=== PATIENT | male | born 1955 | race Caucasian/White ===

== ENCOUNTER 2020-02-26 09:20 | Outpatient (CLI) | payer OTHER, SELFPAY | END 2020-02-26 09:21 | disposition home or self-care (01) | LOC: CHSLAB 09:24 | PROVIDERS: PCP Family Medicine; Visit Provider Specialist | DX: L57.0 Actinic keratosis (principal) | CPT/HCPCS: 88305; 88342 ==

== ENCOUNTER → 2021-05-05 12:06 | Outpatient (CLI) | payer OTHER, SELFPAY ==
--- NOTE | ~2021-05-05 | XR_ITS ---
EXAMINATION: XR forearm RT 2V EXAM DATE: 05/05/2021 13:10 INDICATION: M79.601 - Pain in right arm. pt c/o pain in right forearm posterior side, red swollen and sore to the touch x couple weeks after bumping into an object, TECHNIQUE: Right forearm frontal and lateral projections obtained and reviewed. There is no prior st udy for comparison. FINDINGS: There is ulnar minus variance. Mild right elbow primary osteoarthritis. There are no acute fractures or dislocations identified. There is no subcutaneous gas. There may be some nonspecific soft tissue swelling posteriorly. There are no radiopaque foreign bodies. IMPRESSION: No acute osseous findings. Reviewed, dictated and finalized at location A. IMPRESSION: No acute osseous findings.
== END ==
PROVIDERS: PCP Family Medicine; Visit Provider Physician Assistant
DX: M19.021 Primary osteoarthritis, right elbow (principal)
CPT/HCPCS: 73090

== ENCOUNTER 2022-06-11 08:06 | Outpatient (CLI) | payer MEDICARE, OTHER, SELFPAY ==
[2022-06-11 21:44] LABS: Hemoglobin A1C 5.5 % (<5.7)
[2022-06-11 22:31] LABS: Alanine Aminotransferase 20 U/L (6-50); Albumin Level 4.7 g/dL (3.5-5.1); Alkaline Phosphatase 80 U/L (38-126); Anion Gap 11 mmol/L (8-16); Aspartate Amino Transferase 24 U/L (17-59); Blood Urea Nitrogen 21 mg/dL (9-20); Calcium 9.5 mg/dL (8.4-10.2); Carbon Dioxide 24 mmol/L (22-30); Chloride 102 mmol/L (98-107); Cholesterol 169 mg/dL (0-200); Estimated Glomerular Filt Rate > 60; Glucose 100 mg/dL (65-110); HDL Direct 60 mg/dL; Potassium 3.8 mmol/L (3.4-5.0); Sodium 137 mmol/L (137-145); Triglycerides 76 mg/dL (<150)
[2022-06-11 22:44] LABS: LDL Cholesterol Direct 85 mg/dL
[2022-06-11 23:01] LABS: Prostate Specific Antigen 5.1 ng/mL (< OR = 4.0)
== END 2022-06-11 08:07 | disposition home or self-care (01) ==
LOC: ANHGOSHLAB 08:10
PROVIDERS: PCP Family Medicine; Visit Provider Family Medicine
DX: Z12.5 Encounter for screening for malignant neoplasm of prostate (principal); E78.5 Hyperlipidemia, unspecified; Z51.81 Encounter for therapeutic drug level monitoring; Z79.899 Other long term (current) drug therapy
CPT/HCPCS: 36415; 80053; 80061; 83036; 84153; 84443; G0103

== ENCOUNTER 2022-06-15 09:34 | Outpatient (CLI) | payer MEDICARE, OTHER, SELFPAY ==
[2022-06-17 20:11] LABS: PSA, Free 1.08 ng/mL; Percent Free Prostate Spec Ag 22 % (>25)
== END 2022-06-15 09:35 | disposition home or self-care (01) ==
LOC: ANHGOSHLAB 09:38
PROVIDERS: PCP Family Medicine; Visit Provider Physician Assistant
DX: R97.20 Elevated prostate specific antigen [PSA] (principal)
CPT/HCPCS: 36415; 84153; 84154

== ENCOUNTER 2022-10-05 13:44 | Outpatient (CLI) | payer MEDICARE, OTHER, SELFPAY ==
--- NOTE | ~2022-10-05 | XR_ITS ---
EXAMINATION: XR chest 2V DATE: 10/05/2022 15:26 INDICATION: Malignant neoplasm of the prostate TECHNIQUE: PA and lateral views of the chest are obtained. COMPARISON: None available FINDINGS: The lungs are free of acute opacities. No pleural effusion or pneumothorax. The cardiomedia stinal silhouette is normal. There is moderate thoracic spondylosis. IMPRESSION: 1. No acute cardiopulmonary abnormality. Reviewed, dictated and finalized at location L. IMEDIA SERVICES MANAGER
--- NOTE | 2022-10-05 14:35 | ECG_ITS ---
Measurements Intervals [place] Rate: 65 P: 48 TN: 159 QRS: 38 QRSD: 94 T: 38 QT: 413 QTc: 432 Interpretive Statements SINUS RHYTHM NO PREVIOUS ECG AVAILABLE FOR COMPARISON Electronically Signed On 10-05-2022 15:03:14 DRY CELL ASSEMBLY SUPERVISOR by Hilda Gaines M.D.
[2022-10-05 15:14] LABS: Basophils Absolute Auto 0.1 K/mm3 (0.0-0.1); Basophils Percent Auto 0.7 % (0.2-1.2); Eosinophils Absolute Auto 0.1 K/mm3 (0-0.3); Eosinophils Percent Auto 0.9 % (0-4.4); Hematocrit 45.1 % (42.0-52.0); Hemoglobin 15.3 g/dL (14.0-18.0); Immature Granulocyte Absolute 0.03 K/mm3 (0.00-0.031); Immature Granulocyte Percent A 0.3 % (0-0.5); Lymphocytes Absolute Auto 2.05 K/mm3 (0.9-3.2); Lymphocytes Percent Auto 22.2 % (18.3-44.2); Mean Corpuscular HGB Conc 33.9 g/dl (32-36); Mean Corpuscular Hemoglobin 31.5 pg (26-34); Mean Corpuscular Volume 92.8 fl (80-100); Monocytes Absolute Auto 0.9 K/mm3 (0.1-0.6); Monocytes Percent Auto 10.1 % (2.6-8.5); Neutrophils Absolute Auto 6.1 K/mm3 (1.3-6.7); Neutrophils Percent Auto 65.8 % (45.5-73.1); Platelet Count Result 276 k/mm3 (150-375); Red Blood Count 4.86 M/mm3 (4.6-6.20); Red Cell Distribution Width 11.6 % (11.5-14.5); White Blood Count 9.2 K/mm3 (4.5-10.0)
[2022-10-05 15:16] LABS: Appearance Urine Clear (Clear); Bilirubin Urine Negative (Negative); Blood Urine Trace-lysed (Negative); Color Urine Yellow (Yellow); Glucose Urine UA Negative (Negative); Ketones Urine Negative (Negative); Leukocyte Esterase Ur Negative LEU/UL (Negative); Nitrate Urine Negative (Negative); Protein Urine Negative (Negative); Specific Grav Ur 1.015 (1.001-1.035); Urobilinogen Urine 0.2 mg/dL (<2.0)
[2022-10-05 15:20] LABS: RBC Urine 0-2 /hpf (0-2); WBC Urine 0-3 /hpf
[2022-10-05 15:23] LABS: Alanine Aminotransferase 23 U/L (6-50); Albumin Level 4.6 g/dL (3.5-5.1); Alkaline Phosphatase 79 U/L (38-126); Anion Gap 5 mmol/L (8-16); Aspartate Amino Transferase 28 U/L (17-59); Blood Urea Nitrogen 19 mg/dL (9-20); Calcium 9.7 mg/dL (8.4-10.2); Carbon Dioxide 32 mmol/L (22-30); Chloride 97 mmol/L (98-107); Estimated Glomerular Filt Rate > 60; Glucose 100 mg/dL (65-110); Sodium 134 mmol/L (137-145)
[2022-10-05 15:26] LABS: Add Urine Microscopic? YES; INR 1.1; Prothrombin Time 13.4 Seconds (11.1-14.7)
[2022-10-05 15:27] LABS: Partial Thromboplastin Time 29.2 SECONDS (22.3-36.8)
== END 2022-10-05 13:45 | disposition home or self-care (01) ==
PROVIDERS: PCP Family Medicine; Visit Provider Urology
DX: Z01.818 Encounter for other preprocedural examination (principal); C61 Malignant neoplasm of prostate
CPT/HCPCS: 36415; 71046; 80053; 81001; 85025; 85610; 85730; 86850; 86900; 86901; 93005

== ENCOUNTER 2022-10-14 00:05 | Day surgery (SDC) | payer MEDICARE, OTHER, SELFPAY ==
--- NOTE | 2022-09-28 13:56 | PM.IMHP ---
H&P: HPI History of Present Illness Date/Time: 09/28/22 13:56 Chief Complaint: Prostate cancer Narrative: pleasant 67-year-old dominguez recently referred with a PSA of 5.0. Prostate biopsy showed 2 of 12 cores with Zak 3+4=7, consistent with a favorable intermediate risk prostate cancer. After careful discussion of therapeutic options including active surveillance, radiation therapy in its various forms, androgen ablation and robotic prostatectomy he has elected for the latter. He is aware the risk including, but not limited to, adverse cardiopulmonary events, persistent cancer with need for additional therapy, urinary incontinence and erectile dysfunction. Review of Systems Cardiovascular: Cardiovascular: Denies chest pain, Denies lightheadedness, Denies palpitations and Denies dyspnea Respiratory: Respiratory: Denies dyspnea Gastrointestinal: Gastrointestinal: Denies diarrhea, Denies nausea and Denies vomiting Genitourinary: Genitourinary: Denies hematuria and Denies dysuria Endocrine: Endocrine: Denies palpitations PMFSH Past Medical History Medical History Arthritis Family history of prostate cancer in father Left shoulder pain Family History Family History Sibling Carcinoma of colon Family history of malignant neoplasm of gastrointestinal tract Family history of malignant neoplasm of breast Mother Hypertension Patient's mother is Acute myocardial infarction Depression Heart disease Father Hypertension Family history of elevated blood lipids Malignant neoplasm of prostate Social History Social History (Updated 09/03/22 @ 16:22 by Hannah Estrada MA) Social History: Caffeine- tea Smoking status: Never smoker Alcohol intake: never Alcohol use details: none Substance use: never Substance use type: does not use Lack of Transportation: No Lack of Food: Never True Current Housing: I Have Housing Concerned About Future Housing: No Difficulty Paying for Meds: No Currently Unemployed: No Education: High School Diploma/GED Difficulty w/ Childcare or Family Care: No Living arrangements: with family Occupation/Education: occupation Additional occupation/education comments: [employer] Gender identity (if verbalized by the patient): Male Spiritual care concerns: No Meds Home Medications and Allergies Home Medications Medication Instructions Recorded Confirmed Type brinzolamide 1 %-brimonidine 0.2 % 1 drp EACH EYE TID 11/25/21 06/18/22 History eye drops,suspension lovastatin 10 mg tablet 10 mg PO QPM #90 tabs 01/13/22 06/18/22 Rx lisinopril 10 See Rx Instructions .Route 02/03/22 06/18/22 Rx mg-hydrochlorothiazide 12.5 mg .COMPLEX #90 tabs tablet fluoxetine 20 mg capsule (Prozac) 20 mg PO DAILY #90 caps 09/03/22 Rx tamsulosin 0.4 mg capsule cap PO 09/03/22 History lorazepam 1 mg tablet 1 mg PO QHS PRN anxiety #30 tabs 09/07/22 Rx sodium,potassium,mag sulfates 17.5 See Rx Instructions PO .COMPLEX 09/07/22 Rx gram-3.13 gram-1.6 gram oral soln #354 mL (Suprep Bowel Prep Kit) Allergies Allergy/AdvReac Type Severity Reaction Status Date / Time No Known Allergies Allergy Verified 09/13/22 08:15 Exam Const: General: no acute distress Resp: Effort & Inspection: normal respiratory effort GI: Inspection: non-distended GI Palp: No abdominal tenderness and No Guarding due to palpation present (GI) Auscultation: normal bowel sounds Assessment and Plan Assessment and plan (1) Prostate cancer: Code(s): C61 - Malignant neoplasm of prostate Status: Acute Assessment and Plan: robotic assisted laparoscopic prostatectomy with bilateral pelvic lymphadenectomy
[2022-10-05 13:53] VITALS: BMI 26.4
--- NOTE | 2022-10-05 14:11 | PC.NURSE ---
Report to the Outpatient Waiting Room, entrance under the green pavilion located off [facility], at time __0600 on date __10/14/22 . Planned Procedure Time: ___729 . Time changes happen often and if your time is changed the preop area will call you the afternoon before. - You and your visitor will be asked to self-screen and do not enter if you have any COVID symptoms. - Only one visitor is requested with a max of two and NO children visitors are allowed at this time. - The patient visitor may be requested to leave or wait in car when not with patient due to distancing restrictions. - A mask is optional within the hospital at this time. Patients may have clear liquids (water, carbonated beverages, clear teas, apple juice) until 3 hours prior to surgery with a maximum of 20 ounces. - No food from midnight until time of surgery - Infants may have breast milk until 4 hours before surgery, formula 6 hours prior to surgery. - Children will be allowed to drink immediately following surgery. If applicable, please bring a bottle or sippy cup to assist with drinking. Juice, water, soda, and popsicles are readily available. For infants on formula, please bring formula the day of surgery. Pacifiers are allowed. Take the following medications with a SIP of water the morning of surgery: __EYE DROPS, FLUOXETINE DO NOT STOP ANY OF YOUR OTHER PRESCRIPTION MEDICATIONS PRIOR TO SURGERY ?EXCEPT THE FOLLOWING Medications to discontinue per physician NONE Date to take last dose BOWEL PREP PER DR SCOTT Please no make-up, nail portuguese, hairspray, perfume, deodorant, or body powder the day of surgery. No jewelry (including any body piercings) or valuables the day of surgery, leave them at home. Please take a shower or bath the night before, or the morning of, surgery with an antibacterial soap. Wear comfortable, loose fitting clothing. Children are encouraged to wear pajamas. - Jewelry must be removed prior to entering the operating room. Rings and piercings that are not removed may be cut off. - The hospital will not accept responsibility for valuables. - Please leave all valuables, including medications, at home the day of surgery. If you are going home after surgery, a licensed test car driver must drive you home. - NO public transportation without another adult if you receive anesthesia. - We recommend that an adult stay with you for 24 hours following discharge. - We also recommend that you do not drive, make important decision, drink alcoholic beverages, or take any drugs that were not prescribed by your health care provider for at least 24 hours after your discharge time. Follow any additional instructions given to you from your surgeon. If you or anyone in your household have experienced Covid symptoms in the past week, please notify your surgeon or the nurse liaison at the phone number below for possible testing. VERBAL AND WRITTEN instructions given to __PATIENT and asked if any additional questions and then verbalized understanding. Patient advised to call surgeon office or pre surgery nurse liaison [phone] if any additional questions.
[2022-10-05 14:35] VITALS: BP 150/71; PULSE 69; RESP 18; TEMP 36.7; O2SAT 98
--- NOTE | 2022-10-13 13:21 | WPDANESEPPF ---
Anes - Initial Pre Proc Eval Procedure: Operation Date: 10/14/22 07:30 Proposed Procedures p Robotic Assisted Laparoscopic Prostatectomy with Bilateral Pelvic Lymph Node Dissection - Charly Brennan MD Date/Time: 10/13/22 13:21 Surgeon: Charly Brennan MD Pre Op Diagnosis: prostate CA Patient Data Age: 67 Gender: M Height: 1.73 m Weight: 79 kg Last Vital Signs Temp 98.0 F 10/05/22 14:35 Pulse 69 10/05/22 14:35 Resp 18 10/05/22 14:35 BP 150/71 H 10/05/22 14:35 Pulse Ox 98 10/05/22 14:35 O2 Del Method Room Air 10/05/22 14:35 Allergies Allergy/AdvReac Type Severity Reaction Status Date / Time No Known Allergies Allergy Verified 10/14/22 06:07 Home Medications Medication Instructions Recorded Confirmed Type brinzolamide 1 %-brimonidine 0.2 % 1 drp EACH EYE TID 11/25/21 10/14/22 History eye drops,suspension lovastatin 10 mg tablet 10 mg PO QPM #90 tabs 01/13/22 10/14/22 Rx lisinopril 10 See Rx Instructions .Route 02/03/22 10/14/22 Rx mg-hydrochlorothiazide 12.5 mg .COMPLEX #90 tabs tablet lorazepam 1 mg tablet 1 mg PO QHS PRN anxiety #30 tabs 09/07/22 10/14/22 Rx sodium,potassium,mag sulfates 17.5 See Rx Instructions PO .COMPLEX 09/07/22 10/14/22 Rx gram-3.13 gram-1.6 gram oral soln #354 mL (Suprep Bowel Prep Kit) fluoxetine 20 mg capsule (Prozac) 20 mg PO DAILY #90 caps 10/04/22 10/14/22 Rx loperamide 2 mg capsule 2 mg PO Q6H PRN Diarrhea 10/05/22 10/14/22 History Patient hx anesthesia problems: none Family hx anesthesia problems: none Results Review: All pre-operative results and documents have been reviewed as part of the pre-operative evaluation. [facility] Past Medical History Medical History (Updated 10/13/22 @ 13:21 by Noé Guevara MD) Arthritis Essential (primary) hypertension Family history of prostate cancer in father Left shoulder pain Mixed hyperlipidemia Prostate cancer Family History Family History Sibling Carcinoma of colon Family history of malignant neoplasm of gastrointestinal tract Family history of malignant neoplasm of breast Mother Hypertension Patient's mother is Acute myocardial infarction Depression Heart disease Father Hypertension Family history of elevated blood lipids Malignant neoplasm of prostate Social History Social History (Updated 09/03/22 @ 16:22 by Hannah Estrada MA) Social History: Caffeine- tea Smoking status: Never smoker Alcohol intake: never Alcohol use details: none Substance use: never Substance use type: does not use Lack of Transportation: No Lack of Food: Never True Current Housing: I Have Housing Concerned About Future Housing: No Difficulty Paying for Meds: No Currently Unemployed: No Education: High School Diploma/GED Difficulty w/ Childcare or Family Care: No Living arrangements: with family Occupation/Education: occupation Additional occupation/education comments: [employer] Gender identity (if verbalized by the patient): Male Spiritual care concerns: No Anes - Eval Final PreProcedure Day of Procedure 10/13/22 13:21 Patient weight: normal Heart: regular rate and rhythm Lungs: clear to auscultation Airway: Mallampati scale class II Neurological: alert and oriented Last oral intake: >/= 8 hours ASA classification: III Emergent: no Anesthetic plan: proceed Anesthesia type and monitoring: general ETT and standard monitoring Results Review: All pre-operative results and documents have been reviewed as part of the pre-operative evaluation. Informed Consent: The patient's anesthetic plan and its attendant risks and benefits were discussed with the patient/family/POA. Questions were solicited and answers provided to the satisfaction of the patient/family/POA.
[2022-10-14] VITALS (13 sets, daily range): BP systolic 100–167; BP diastolic 56–75; PULSE 64–96; RESP 12–20; TEMP 35.8–37.1; O2SAT 93–100
--- NOTE | ~2022-10-14 | XR_ITS ---
EXAMINATION: XR abdomen/kub 1V INDICATION: History of kidney stones TECHNIQUE: Supine view of the abdomen is obtained. COMPARISON: None FINDINGS: There is a 9 mm stone of the left kidney lower pole. No additional urolithiasis is identifi ed. The bowel gas pattern is normal. IMPRESSION: 1. Left nephrolithiasis. Reviewed, dictated and finalized at location A. AND BEVERAGE OUTLETS MANAGER IMPRESSION: 1. Left nephrolithiasis.
[2022-10-14] MEDS: LACTATED RINGERS 1,000 ML 30 ML IV CONT ×2 (06:25→10:28)
--- NOTE | 2022-10-14 06:43 | WPDHPUPDATE1 ---
History and Physical Update Update Date/Time: 10/14/22 06:43 History and Physical has been reviewed, including an updated exam of the patient. There are NO changes in the patient's condition. Risks, benefits, and alternatives have been discussed and questions answered. Patient agrees to proceed with procedure.
[2022-10-14] MEDS: ceFAZolin 2 GM/D5W 50 ML 2 GM/50 ML BAG IVPB (07:22)
--- NOTE | 2022-10-14 10:13 | W.PM.PROC2 ---
Procedure Note - Detailed Date of Procedure 10/14/22 Pre-op Diagnosis Prostate CA Post-op Diagnosis Same Procedure Performed Robotic assisted laparoscopic prostatectomy with bilateral pelvic lymphadenectomy Surgeon Charly Brennan MD Anesthesia General Description of Procedure The patient was brought to the operative suite, where he was prepped and draped in routine sterile fashion while in a dorsal lithotomy, deep Trendelenburg position. A supraumbilical 10 mm trocar was placed after insufflation of the abdomen with a Veress needle. Three robotic ports were then placed under direct vision. Two of these were placed in the right lower quadrant - 10 cm and 20 cm lateral to, and in line with, the umbilicus. A third robotic trocar was placed 10 cm to the left of the umbilicus, and 20 cm to the left of the umbilicus, a 12 mm standard laparoscopic trocar was placed to be used as an chef's assistant port. Lastly, a 5 mm trocar was placed in the left upper quadrant midway between the umbilicus and the left robotic trocar. Attention was then turned to the prostatectomy. I opted for a posterior approach in this patient. An incision was made in the parietal peritoneum along the posterior bladder/posterior prostate about 2 cm above the reflection of the peritoneum over the anterior rectum. The seminal vesicles and vas deferens were immediately identified. Dissection is undertaken in a fashion so as to avoid electrocautery as much as possible, particularly near the tips of the seminal vesicles. Dissection was also carried out in the midline so as to avoid any encounters with the ureters. The vas deferens and the seminal vesicles were dissected in their entirety to the base of the prostate. The plane anterior to Denoviller's fascia, anterior to the rectum and posterior to the prostate was then developed. I then dropped the bladder by incising the anterior parietal peritoneum just lateral to the median umbilical ligaments bilaterally. There was a small unusual soft tissue implant on the posterior bladder wall which I excised and sent as a separate specimen. The bladder was dropped from the anterior abdominal and pelvic wall. The endopelvic fascia was identified and incised bilaterally, allowing for dissection of the posterior-lateral aspect of the prostate. The puboprostatic ligaments were transected near their origin from the posterior pubic ramus. This posterior lateral dissection of the prostate is also undertaken in a fashion so as to avoid electrocautery as much as possible. The dorsal vein of the penis is then secured with an 0 -Vicryl ligature. Attention is then turned to the bladder neck. The anterior bladder neck is incised at the vesico-prostatic junction. The previously placed urethral catheter was drawn through the urethrotomy. A very small bladder neck was maintained throughout the remainder of this dissection. The posterior bladder neck was incised in a fashion so as to avoid any injury to the ureteral orifices. Again, the small aperture of the bladder neck was maintained. The previously dissected vas deferens and the seminal vesicles were brought through the posterior bladder neck incision. The lateral prostatic pedicles were then carefully dissected from the lateral aspect of the prostate bilaterally. The prostatic pedicles were secured with Weck clips and transected. The neurovascular bundles were carefully dissected from the posterior-lateral aspect of the prostate. The dorsal vein of the penis was incised with electrocautery. Using cold scissors, the urethra was incised. After withdrawing the previously placed urethral catheter, the posterior urethra was sharply incised, as was the rectalurethralis muscle. Attention was then turned to an extended bilateral pelvic lymphadenectomy. The limits of this dissection were similar bilaterally. Specifically, the limits were the bifurcation of the common iliac vein proximally, the inguinal ligament di
[2022-10-14] MEDS: fentaNYL CITRATE INJ (*CRX) 100 MCG/2 ML VIAL 25 MCG IV PUSH ×4 (10:56→11:11)
[2022-10-14] MEDS: LACTATED RINGERS 1,000 ML 125 ML IV CONT ×2 (12:12→20:57)
[2022-10-14] MEDS: ONDANSETRON INJ 4 MG/2 ML VIAL IV PUSH (16:54)
[2022-10-14] MEDS: PROMETHAZINE HCL 25 MG/ML AMPUL IM (20:17)
[2022-10-14] MEDS: BRIMONIDINE TARTRATE 0.2% OP SOLN 5 ML BTL 1 DROP EACH EYE (20:22)
[2022-10-14] MEDS: BRINZOLAMIDE 1% OPHTH SUSP 10 ML 1 DROP EACH EYE (20:22)
[2022-10-15] MEDS: LACTATED RINGERS 1,000 ML 125 ML IV CONT (05:19)
[2022-10-15 05:24] VITALS: BP 124/65; PULSE 61; RESP 14; TEMP 36.8; O2SAT 100
--- NOTE | 2022-10-15 06:53 | WPDUROPN2 ---
Progress Note: A&P Assessment and Plan (1) Prostate cancer: Code(s): C61 - Malignant neoplasm of prostate Status: Acute Assessment and Plan: Doing well POD #1 Increase diet and ambulation this morning. Anticipate discharge this afternoon. Subjective Subjective Date/Time Seen: 10/15/22 06:53 Nausea last night -> much better this morning. Review of Systems Cardiovascular: Cardiovascular: Denies chest pain, Denies lightheadedness, Denies palpitations and Denies dyspnea Respiratory: Respiratory: Denies dyspnea Gastrointestinal: Gastrointestinal: Denies diarrhea, Denies nausea and Denies vomiting Genitourinary: Genitourinary: Denies hematuria and Denies dysuria Endocrine: Endocrine: Denies palpitations Exam Const: General: no acute distress Resp: Effort & Inspection: normal respiratory effort GI: Inspection: non-distended and other (incisions clean and dry) GI Palp: No abdominal tenderness and No Guarding due to palpation present (GI) Auscultation: normal bowel sounds : Male General Exam: Yes normal external exam Urinary Catheter: Urinary Catheter: patent and draining Objective Data Vital Signs Vital Signs: Vital Signs - 24 hr 10/14/22 10:28 10/14/22 10:45 10/14/22 11:00 Temperature 97.7 F Pulse Rate 72 74 84 Respiratory Rate 18 16 18 Blood Pressure 100/56 L 117/61 112/64 Pulse Oximetry 99 100 99 Oxygen Delivery Simple Face Mask Simple Face Mask Room Air Oxygen Flow Rate 6 6 10/14/22 11:15 10/14/22 11:30 10/14/22 12:05 Temperature 96.9 F L Pulse Rate 73 79 81 Respiratory Rate 12 14 18 Blood Pressure 117/74 115/71 109/66 Pulse Oximetry 96 95 93 Oxygen Delivery Room Air Room Air Oxygen Flow Rate 10/14/22 12:35 10/14/22 12:35 10/14/22 18:25 Temperature 96.7 F L 96.5 F L Pulse Rate 79 74 Respiratory Rate 19 18 Blood Pressure 107/64 111/64 Pulse Oximetry 96 99 99 Oxygen Delivery Room Air Oxygen Flow Rate 10/14/22 17:24 10/14/22 21:24 10/14/22 23:45 Temperature 97.3 F L 98.4 F 97.8 F Pulse Rate 77 66 64 Respiratory Rate 19 14 12 Blood Pressure 124/65 124/71 142/75 H Pulse Oximetry 99 99 100 Oxygen Delivery Oxygen Flow Rate 10/15/22 05:24 Temperature 98.3 F Pulse Rate 61 Respiratory Rate 14 Blood Pressure 124/65 Pulse Oximetry 100 Oxygen Delivery Oxygen Flow Rate Intake/Output Intake/Output: Intake & Output 10/12/22 10/13/22 10/14/22 10/15/22 23:59 23:59 23:59 23:59 Intake Total 1590 1100 Output Total 210 1350 Balance 1380 -250 Meds/Results Medications: Active Medications Generic Name Dose Route Start Last Admin Trade Name Freq PRN Reason Stop Dose Admin Brimonidine Tartrate 1 drop 10/14/22 21:00 10/14/22 20:22 Brimonidine Tartrate 0.2% Op Soln 5 Ml Btl EACH EYE 1 drop Q12HR NORA Administration Brinzolamide 1 drop 10/14/22 21:00 10/14/22 20:22 Brinzolamide 1% Ophth Susp 10 Ml EACH EYE 1 drop Q12HR NORA Administration Fluoxetine HCl 20 mg 10/15/22 09:00 Fluoxetine Hcl 20 Mg Capsule PO DAILY NORA Hydrochlorothiazide 12.5 mg 10/14/22 13:00 10/14/22 15:57 Hydrochlorothiazide 12.5 Mg Capsule PO Not Given DAILY NORA Hyoscyamine 0.125 mg 10/14/22 11:39 Hyoscyamine Sulfate 0.125 Mg Tablet SUBLINGUAL Q4H PRN Bladder Spasm Lactated Ringer's 1,000 mls @ 125 mls/hr 10/14/22 11:39 10/15/22 05:19 Lr - Lactated Ringers Iv IV CONT 125 mls/hr .Q8H NORA Administration Acetaminophen 1,000 mg in 100 mls @ 400 mls/hr 10/14/22 11:39 10/15/22 05:19 Ofirmev 1,000 Mg Ivpb IVPB 10/15/22 11:38 400 mls/hr Q6H NORA Administration Ketorolac Tromethamine 15 mg 10/14/22 11:39 Ketorolac 15 Mg/Ml Vial (*[facility]) IV PUSH 10/15/22 11:38 Q6H PRN Pain Rated 4-6 Levofloxacin 500 mg 10/15/22 09:00 Levofloxacin 500 Mg Tablet PO DAILY NORA Lisinopril 10 mg 10/14/22 13:00 02/16/23 15:57 Lisinopril 10 Mg Tablet PO No
[2022-10-15 08:16] LABS: Hematocrit 36.4 % (42.0-52.0); Hemoglobin 12.7 g/dL (14.0-18.0)
[2022-10-15 08:24] LABS: Anion Gap 3 mmol/L (8-16); Blood Urea Nitrogen 12 mg/dL (9-20); Calcium 8.7 mg/dL (8.4-10.2); Carbon Dioxide 30 mmol/L (22-30); Chloride 97 mmol/L (98-107); Estimated CRCL calculation 69 ml/min; Estimated Glomerular Filt Rate > 60; Glucose 108 mg/dL (65-110); Potassium 3.8 mmol/L (3.4-5.0); Sodium 130 mmol/L (137-145)
[2022-10-15] MEDS: BRINZOLAMIDE 1% OPHTH SUSP 10 ML 1 DROP EACH EYE (08:36)
[2022-10-15] MEDS: BRIMONIDINE TARTRATE 0.2% OP SOLN 5 ML BTL 1 DROP EACH EYE (08:36)
[2022-10-15] MEDS: FLUoxetine HCL 20 MG CAPSULE PO (08:37)
[2022-10-15] MEDS: lisinopriL 10 MG TABLET PO (08:37)
[2022-10-15] MEDS: levoFLOXacin 500 MG TABLET PO (08:37)
[2022-10-15] MEDS: hydroCHLOROthiazide 12.5 MG CAPSULE PO (08:37)
[2022-10-15 08:55] VITALS: BP 132/61; PULSE 66; RESP 13; TEMP 36.4; O2SAT 100
[2022-10-15 14:00] VITALS: BP 127/61; PULSE 69; RESP 20; TEMP 36.1; O2SAT 100
--- NOTE | 2022-10-15 14:37 | WPDANESPN ---
Anes - Prog Note Post-Op Date/Time: 10/15/22 14:37 Vital Signs: Last Vital Signs Temp 36.4 C L 10/15/22 08:55 Pulse 66 10/15/22 08:55 Resp 13 10/15/22 08:55 BP 132/61 10/15/22 08:55 Pulse Ox 100 10/15/22 08:55 O2 Del Method Room Air 10/15/22 08:30 O2 Flow Rate 6 10/14/22 10:45 Pain Score (VAS): 3 I/O: Intake & Output 10/14/22 10/15/22 10/15/22 23:59 07:59 15:59 Intake Total 1340 1100 360 Output Total 1350 Balance 1340 -250 360 Laboratory Tests 10/15/22 07:44 10/15/22 07:44 10/15/22 10/15/22 07:44 07:44 Hgb 12.7 L Hct 36.4 L Sodium 130 L Potassium 3.8 Chloride 97 L Carbon Dioxide 30 Anion Gap 3 L BUN 12 D Creatinine 0.90 Estim Creat Clear Calc 69 Estimated GFR > 60 Glucose 108 Calcium 8.7 Patient Feedback: Patient satisfied with anesthetic care.
--- NOTE | 2022-10-15 16:18 | PM.DS ---
DS: Admitting Diagnosis Discharge Date 10/15/2022 Admitting Diagnosis Prostate cancer DS: Summary Hospital Course Hospital Course: This patient was admitted on the morning of his planned robotic prostatectomy. This procedure was uneventful, as was his postoperative course. By the evening of the procedure he was sitting at the bedside in tolerating a liquid diet. The following morning he was ambulating freely and tolerating regular food. His catheter drainage remained essentially clear throughout. His postoperative hemoglobin and serum creatinine were unremarkable. At the time of discharge he has been instructed in appropriate care for his Jaimes catheter with both a leg bag and bedside bag. He will be discharged with plans to follow-up in 1 week with a cystogram. Time Spent with Patient Time attestation: Total time spent providing and/or coordinating discharge services: DS: Data Data Completed and Pending Pending studies at discharge: Pending at discharge 10/14/22 08:29 Surgical [PTH] Routine Surgical [PTH] Routine Surgical [PTH] Routine Surgical [PTH] Routine Labs on day of discharge: Labs from last 24 hours 10/15/22 10/15/22 07:44 07:44 Hgb 12.7 L Hct 36.4 L Sodium 130 L Potassium 3.8 Chloride 97 L Carbon Dioxide 30 Anion Gap 3 L BUN 12 D Creatinine 0.90 Estim Creat Clear Calc 69 Estimated GFR > 60 Glucose 108 Calcium 8.7 Discharge Plan Discharge Patient Disposition: Home, Self-Care Discharge Instructions: 1) Jaimes catheter -> leg bag / bedside bag at night. 2) No lifting/straining >15lbs. x3 weeks. 3) No driving x1-week. 4) Resume normal, pre-operative diet. 5) My office will contact regarding follow-up in 1-week with cystogram. Patient Instructions: Jaimes Catheter Placement and Care (DC), Urinary Leg Bag (GEN), How to Change a Catheter Drainage Bag (DC) Stand Alone Forms: General Discharge Instructions Discharge Orders: Discharge Order (Routine); Ordered 10/15/22 Ordered By: Charly Brennan Discharge Medications: New docusate sodium [Colace] 100 mg capsule 100 mg PO DAILY Qty: 30 0RF hydrocodone-acetaminophen 5-325 mg tablet 1 - 2 tablet PO Q6H PRN (Reason: pain) Qty: 30 0RF hyoscyamine sulfate 0.125 mg tablet 0.125 mg PO Q6H PRN (Reason: bladder spasms) Qty: 20 2RF cephalexin 500 mg capsule 500 mg PO Q8H Qty: 12 0RF ondansetron HCl 8 mg tablet 8 mg PO Q8H PRN (Reason: nausea and vomiting) Qty: 12 2RF Continued brinzolamide-brimonidine 1-0.2 % drops,suspension 1 drp EACH EYE BID Label Comments: USES BID Rx Instructions: morning and evening fluoxetine [Prozac] 20 mg capsule 20 mg PO DAILY Qty: 90 1RF loperamide 2 mg Capsule 2 mg PO Q6H PRN (Reason: Diarrhea) lovastatin 10 mg tablet 10 mg PO QPM Qty: 90 3RF Rx Instructions: evening lisinopril-hydrochlorothiazide 10-12.5 mg tablet See Rx Instructions .ROUTE .COMPLEX Qty: 90 3RF Dose Instruction: TAKE 1 TABLET BY MOUTH DAILY Rx Instructions: TAKE 1 TABLET BY MOUTH DAILY lorazepam 1 mg tablet 1 mg PO QHS PRN (Reason: anxiety) Qty: 30 1RF Label Comments: HAS NOT NEEDED TO TAKE
== END 2022-10-15 17:48 | disposition home or self-care (01) ==
LOC: ANHSURGERY 05:51 → ANH3MEDSUR 11:45
PROVIDERS: PCP Family Medicine; Visit Provider Urology
PROC: 0VT04ZZ Resection of Prostate, Percutaneous Endoscopic Approach (ICD-10-PCS; CPT 55867; principal; 2022-10-14 07:30)
DX: C61 Malignant neoplasm of prostate (principal); N32.89 Other specified disorders of bladder; I10 Essential (primary) hypertension; E78.2 Mixed hyperlipidemia
CPT/HCPCS: 55866; 38571; S2900; 36415; 74018; 80048; 85014; 85018; 88305; 88309; A9270; J0131; J0690; J1100; J1170; J2405; J2550; J2704; J2710; J3010; J7030; J7120

== ENCOUNTER 2022-10-22 11:43 | Outpatient (CLI) | payer MEDICARE, OTHER, SELFPAY ==
--- NOTE | ~2022-10-22 | XR_ITS ---
EXAMINATION: CYSTOGRAM DATE: 10/22/2022 12:28 INDICATION: Status post prostatectomy TECHNIQUE: Initial food and nutrition supervisor radiograph of the pelvis was performed. There was retrograde administration of Omnipaque 350 mixed with saline contrast into patient's existing Jaimes catheter. Fluoroscopic radha ges of the pelvis were obtained. A post-void image was also performed. Fluoroscopy exposure time was 0.8 minutes. A total of 18 fluoroscopic images were recorded. Total DAP was 11.956 Gycm^2 FINDINGS: 1.2 cm stone at the lower pole of the left kidney on the food and nutrition supervisor radiograph. No contrast flows the blad niko surrounding the Jaimes catheter bulb. No contrast extravasation or mucosal irregularities. IMPRESSION: 1. No bladder leak. 2. 1.2 cm left renal stone. Reviewed, dictated and finalized at location A. RANCE COLLECTOR
== END 2022-10-22 11:44 | disposition home or self-care (01) ==
PROVIDERS: PCP Family Medicine; Visit Provider Urology
DX: C61 Malignant neoplasm of prostate (principal); N20.0 Calculus of kidney; Z90.79 Acquired absence of other genital organ(s)
CPT/HCPCS: 51600; 74430; Q9967

== ENCOUNTER 2022-10-30 01:15 | Emergency (ER) | payer MEDICARE, OTHER, SELFPAY ==
--- NOTE | ~2022-10-30 | CT_ITS ---
EXAMINATION: CTA chest PE protocol DATE: 10/30/2022 02:13 INDICATION: Left chest pain. TECHNIQUE: Computed tomography angiography (CTA) of the chest was performed with 100 mL Omnipaque-350 intravenous contrast timed to evaluate the pulmonary arteries. Coronal maximum intensity projection 3D-reconstructions were created by the technologist. Automated exposure control and iterative reconst ruction technique were employed. The dose-length product was 343.11 mGy-cm. COMPARISON: None. FINDINGS: The lungs demonstrate minimal atelectasis. A calcified right lung nodules consistent with o ld granulomatous disease. No pleural effusion. The heart size is normal. No pericardial effusion. The re is no pulmonary embolus. There is mild thoracic spondylosis and severe cervical spondylosis. There are multiple old healed left rib fractures. IMPRESSION: 1. No pulmonary embolus. Sensitivity is mildly decreased by motion artifact. Reviewed, dictated and finalized at location A. TRUCTION ADMINISTRATOR
--- NOTE | 2022-10-30 01:18 | ECG_ITS ---
Measurements Intervals [place] Rate: 98 P: 56 [place]: 158 QRS: 59 QRSD: 81 T: 44 QT: 357 QTc: 457 Interpretive Statements SINUS RHYTHM POSSIBLE LEFT ATRIAL ENLARGEMENT INCOMPLETE RIGHT BUNDLE BRANCH BLOCK NONSPECIFIC ST & T-WAVE ABNORMALITY- ANT/INF LEADS BASELINE WANDER- I, II BORDERLINE ECG COMPARED TO ECG 10/05/2022 15:06:50 ST-T WAVE ABNORMALITY NOW PRESENT Electronically Signed On 10-30-2022 6:56:14 UNDERWRITING OPERATIONS MANAGER by Alistair Mcclelland D.O.
[2022-10-30 01:22] VITALS: BP 174/82; PULSE 95; RESP 20; TEMP 36.5; O2SAT 100
--- NOTE | 2022-10-30 01:22 | ED.CHESTPAIN ---
HPI - Chest Pain General Chief Complaint: Chest Pain Stated Complaint: Chest Pain Time Seen by Provider: 10/30/22 01:22 Source: patient Mode of arrival: ambulatory Limitations: no limitations History of Present Illness HPI narrative: 67 year old male presents to the Emergency Department complaining of being awakened from sleep with chest pain. Pain to mid to lower substernal /epigastric region. Still has some. States feels like a dull ache. Denies shortness of breath, nausea, diaphoresis. Recently had prostatectomy. MD complaint: chest pain Onset (ago): minute(s) Prior episodes: No Pain location: substernal and epigastric Pain radiation: none Severity: mild Quality: dull Relieving factors: nothing Exacerbating factors: nothing Context: recent surgery Treatment prior to arrival: other (Tums) Risk Factors Coronary artery disease risk factors: none Thoracic aortic dissection risk factors: none Related Data Home Medications Medication Instructions Recorded Confirmed brinzolamide 1 %-brimonidine 0.2 % 1 drp EACH EYE BID 11/25/21 10/30/22 eye drops,suspension (Simbrinza) fluoxetine 20 mg capsule (Prozac) 20 mg PO DAILY 10/30/22 10/30/22 lisinopril 10 See Rx Instructions .Route .COMPLEX 10/30/22 10/30/22 mg-hydrochlorothiazide 12.5 mg tablet (Zestoretic) Allergies Allergy/AdvReac Type Severity Reaction Status Date / Time No Known Allergies Allergy Verified 10/14/22 06:07 Review of Systems Review of Systems: All systems reviewed & are unremarkable except as noted in HPI and below Constitutional: Constitutional: Reports as per HPI, Reports no additional constitutional complaints, Denies chills and Denies fever(s) Eyes: Eyes: Reports as per HPI and Reports no additional eye complaints ENT: Reports system reviewed and no additional complaints, except as documented and Reports as per HPI Cardiovascular: Cardiovascular: Reports as per HPI, Reports no additional cardiovascular complaints and Reports chest pain Respiratory: Respiratory: Reports as per HPI, Reports no additional respiratory complaints and Denies dyspnea Gastrointestinal: Gastrointestinal: Reports as per HPI, Reports no additional gastrointestinal complaints, Denies abdominal pain, Denies diarrhea, Denies nausea and Denies vomiting Genitourinary: Genitourinary: Reports no additional male genitourinary complaints and Reports as per HPI Musculoskeletal: Musculoskeletal: Reports no additional musculoskeletal complaints and Reports as per HPI Integumentary/Breasts: Skin/Breast: Reports system reviewed and no additional complaints, except as docu and Reports as per HPI Neurologic: Reports system reviewed and no additional complaints, except as documented and Reports as per HPI Psychiatric: Psychiatric: Reports no additional psychiatric complaints Endocrine: Endocrine: Reports no additional endocrine complaints and Reports as per HPI Hematologic/Lymphatic: Hematologic/Lymphatic: Reports no additional hematologic/lymphatic complaints and Reports as per HPI Allergic/Immunologic: Allergic/Immunologic: Reports no additional allergic/immunologic complaints and Reports as per HPI PMFSH Past Medical History Medical History Arthritis Essential (primary) hypertension Family history of prostate cancer in father Left shoulder pain Mixed hyperlipidemia Prostate cancer Surgical History Surgical History H/O prostatectomy Family History Family History Sibling Carcinoma of colon Family history of malignant neoplasm of gastrointestinal tract Family history of malignant neoplasm of breast Mother Hypertension Patient's mother is Acute myocardial infarction Depression Heart disease Father Hypertension Family history of elevated blood lipids Malignant neoplasm of prosta
[2022-10-30 01:28] LABS: Basophils Absolute Auto 0.09 K/mm3 (0.00-0.10); Basophils Percent Auto 0.8 % (0.0-1.0); Eosinophils Absolute Auto 0.32 K/mm3 (0.02-0.50); Eosinophils Percent Auto 2.8 % (1.0-6.0); Hematocrit 35.7 % (37.0-46.0); Hemoglobin 11.8 g/dL (12.4-15.3); Immature Granulocyte Absolute 0.12 K/mm3 (0.00-0.00); Immature Granulocyte Percent A 1.1 % (0.0-0.0); Lymphocytes Absolute Auto 3.07 K/mm3 (1.10-4.50); Mean Corpuscular HGB Conc 33.1 g/dL (32.0-36.0); Mean Corpuscular Hemoglobin 31.9 pg (27.0-31.0); Mean Corpuscular Volume 96.5 fL (78.0-102.0); Mean Platelet Volume 8.7 fl (8.7-11.0); Monocytes Absolute Auto 1.23 K/mm3 (0.10-0.90); Monocytes Percent Auto 10.8 % (2.0-11.0); Neutrophils Absolute Auto 6.5 K/mm3 (1.7-7.2); Neutrophils Percent Auto 57.5 % (50.0-70.0); Platelet Count Result 430 K/mm3 (150-420); Red Cell Distribution Width 12.2 % (11.6-14.4); White Blood Count 11.4 K/mm3 (4.8-10.8)
[2022-10-30] MEDS: MAG HYDROX/ALUMINUM HYD/SIMETH 30 ML, PHENobarb/HYOSCY/ATROPINE/SCOP 32.4 MG, LIDOCAINE... PO (01:31)
[2022-10-30 01:42] LABS: D Dimer 2.35 mg/L (0.19-0.50)
[2022-10-30 01:48] LABS: Alanine Aminotransferase 33 U/L (16-63); Albumin Level 3.7 g/dL (3.4-5.0); Alkaline Phosphatase 108 U/L (46-116); Anion Gap 9 mmol/L (8-16); Aspartate Amino Transferase 19 U/L (15-37); Bilirubin,Total 0.5 mg/dL (0.00-1.00); Blood Urea Nitrogen 17 mg/dL (7-18); Calcium 9.8 mg/dL (8.5-10.1); Carbon Dioxide 29 mmol/L (21-32); Chloride 102 mmol/L (98-108); Estimated CRCL calculation 54 ml/min; Estimated Glomerular Filt Rate > 60; Glucose 109 mg/dL (70-99); Osmolality Calculated 292 mOsm/kg (285-295); Potassium 3.4 mmol/L (3.5-5.1); Sodium 140 mmol/L (136-145); Total Protein 7.2 g/dL (6.4-8.2); Troponin I 4.8 ng/L (0.00-60.4)
[2022-10-30 02:36] VITALS: BP 151/69; PULSE 85; RESP 20; TEMP 36.7; O2SAT 100
[2022-10-30 03:46] LABS: Troponin I 4.6 ng/L (0.00-60.4)
[2022-10-30 04:01] VITALS: BP 146/86; PULSE 89; RESP 20; TEMP 36.7; O2SAT 99
== END 2022-10-30 04:03 | disposition home or self-care (01) ==
PROVIDERS: Emergency Provider Emergency Medicine; PCP Family Medicine
DX: K21.9 Gastro-esophageal reflux disease without esophagitis (principal); I10 Essential (primary) hypertension; E78.2 Mixed hyperlipidemia
CPT/HCPCS: 36415; 71275; 80053; 83735; 84484; 85025; 85380; 93005; 99284; A9270; Q9967

== ENCOUNTER 2023-03-18 00:09 | Day surgery (SDC) | payer MEDICARE, OTHER, SELFPAY ==
[2023-03-07 14:00] VITALS: BMI 27.4
--- NOTE | 2023-03-18 07:35 | WPDANESEPPF ---
Anes - Initial Pre Proc Eval Procedure: Operation Date: 03/18/23 09:00 Proposed Procedures p Screening Colonoscopy - iJm Samaniego MD Date/Time: 03/18/23 07:35 Surgeon: Jim Samaniego MD Pre Op Diagnosis: neoplasm screening Patient Data Age: 67 Gender: M Height: 1.73 m Weight: 82 kg Allergies Allergy/AdvReac Type Severity Reaction Status Date / Time lactose Allergy Diarrhea Verified 03/18/23 08:12 Home Medications Medication Instructions Recorded Confirmed Type brinzolamide 1 %-brimonidine 0.2 % 1 drp EACH EYE BID 11/25/21 03/07/23 History eye drops,suspension (Simbrinza) lovastatin 10 mg tablet 10 mg PO QPM #90 tabs 01/13/22 03/07/23 Rx lisinopril 10 See Rx Instructions .Route 02/04/23 03/07/23 Rx mg-hydrochlorothiazide 12.5 mg .COMPLEX #90 tabs tablet (Zestoretic) sodium,potassium,mag sulfates 17.5 See Rx Instructions PO .COMPLEX 02/16/23 03/04/23 Rx gram-3.13 gram-1.6 gram oral soln #354 mL (Suprep Bowel Prep Kit) fluoxetine 20 mg capsule (Prozac) 20 mg PO DAILY #90 caps 03/04/23 03/07/23 Rx lorazepam 1 mg tablet 1 mg PO QHS PRN anxiety #30 tabs 03/04/23 03/07/23 Rx Patient hx anesthesia problems: none Family hx anesthesia problems: none Results Review: All pre-operative results and documents have been reviewed as part of the pre-operative evaluation. [facility] Past Medical History Medical History Arthritis Essential (primary) hypertension Family history of prostate cancer in father Left shoulder pain Mixed hyperlipidemia Prostate cancer Surgical History Surgical History H/O prostatectomy Family History Family History Sibling Carcinoma of colon Family history of malignant neoplasm of gastrointestinal tract Family history of malignant neoplasm of breast Mother Hypertension Patient's mother is Acute myocardial infarction Depression Heart disease Father Hypertension Family history of elevated blood lipids Malignant neoplasm of prostate Social History Social History Social History: Caffeine- tea Smoking status: Never smoker Alcohol intake: never Alcohol use details: none Substance use: never Substance use type: does not use Lack of Transportation: No Lack of Food: Never True Current Housing: I Have Housing Concerned About Future Housing: No Difficulty Paying Gas/Electric Bills: No Difficulty Paying for Meds: No Currently Unemployed: No Education: High School Diploma/GED Difficulty w/ Childcare or Family Care: No Living arrangements: other Additional living arrangements comments: With spouse Occupation/Education: occupation Additional occupation/education comments: [employer] Gender identity (if verbalized by the patient): Male Spiritual care concerns: No Anes - Eval Final PreProcedure Day of Procedure 03/18/23 07:35 Patient weight: overweight Heart: regular rate and rhythm Lungs: clear to auscultation Airway: Mallampati scale class II Neurological: alert and oriented Last oral intake: >/= 8 hours ASA classification: III Emergent: no Anesthetic plan: proceed Anesthesia type and monitoring: general GIVS and standard monitoring Results Review: All pre-operative results and documents have been reviewed as part of the pre-operative evaluation. Informed Consent: The patient's anesthetic plan and its attendant risks and benefits were discussed with the patient/family/POA. Questions were solicited and answers provided to the satisfaction of the patient/family/POA.
[2023-03-18 08:13] VITALS: BP 152/73; PULSE 63; RESP 20; TEMP 35.7; O2SAT 100
[2023-03-18] MEDS: LACTATED RINGERS 1,000 ML 150 ML IV CONT (08:25)
--- NOTE | 2023-03-18 08:49 | PM.HPGS ---
History of Present Illness History of Present Illness Consent: Risks, benefits, and alternatives have been discussed and questions answered. Patient agrees to proceed with procedure. Chief complaint: neoplasm screening Narrative: Seven Jung is a 67 year old male Presents for screening colonoscopy. Patient's current weight appetite and bowel movements are normal. Patient denies abdominal pain. He has had no bleeding. Family history is significant that his sister had colon cancer. Review of Systems Review of Systems: Review of systems noncontributory. [facility] Past Medical History Medical History Arthritis Essential (primary) hypertension Family history of prostate cancer in father Left shoulder pain Mixed hyperlipidemia Prostate cancer Surgical History Surgical History H/O prostatectomy Family History Family History Sibling Carcinoma of colon Family history of malignant neoplasm of gastrointestinal tract Family history of malignant neoplasm of breast Mother Hypertension Patient's mother is Acute myocardial infarction Depression Heart disease Father Hypertension Family history of elevated blood lipids Malignant neoplasm of prostate Social History Social History Social History: Caffeine- tea Smoking status: Never smoker Alcohol intake: never Alcohol use details: none Substance use: never Substance use type: does not use Lack of Transportation: No Lack of Food: Never True Current Housing: I Have Housing Concerned About Future Housing: No Difficulty Paying Gas/Electric Bills: No Difficulty Paying for Meds: No Currently Unemployed: No Education: High School Diploma/GED Difficulty w/ Childcare or Family Care: No Living arrangements: other Additional living arrangements comments: With spouse Occupation/Education: occupation Additional occupation/education comments: [employer] Gender identity (if verbalized by the patient): Male Spiritual care concerns: No Meds Home Medications and Allergies Home Medications Medication Instructions Recorded Confirmed Type brinzolamide 1 %-brimonidine 0.2 % 1 drp EACH EYE BID 11/25/21 03/07/23 History eye drops,suspension (Simbrinza) lovastatin 10 mg tablet 10 mg PO QPM #90 tabs 01/13/22 03/07/23 Rx lisinopril 10 See Rx Instructions .Route 02/04/23 03/07/23 Rx mg-hydrochlorothiazide 12.5 mg .COMPLEX #90 tabs tablet (Zestoretic) fluoxetine 20 mg capsule (Prozac) 20 mg PO DAILY #90 caps 03/04/23 03/07/23 Rx lorazepam 1 mg tablet 1 mg PO QHS PRN anxiety #30 tabs 03/04/23 03/07/23 Rx Allergies Allergy/AdvReac Type Severity Reaction Status Date / Time lactose Allergy Diarrhea Verified 03/18/23 08:12 Vital Signs Vital Signs - 24 hr 03/18/23 08:13 Temperature 96.3 F L Pulse Rate 63 Respiratory Rate 20 Blood Pressure 152/73 H Pulse Oximetry 100 Oxygen Delivery Room Air Exam Narrative: Physical exam reveals patient to be alert. Vital signs stable. HEENT exam is unremarkable. Patient is anicteric. Lungs are clear to auscultation and percussion. Heart is without murmur or extra sounds. Abdomen bowel sounds are present soft nontender with no organomegaly. Digital external rectal exam is normal. Assessment and Plan Assessment and plan (1) Colon cancer screening: Code(s): Z12.11 - Encounter for screening for malignant neoplasm of colon Status: Acute Assessment and Plan: Patient presents today for colon cancer screening. the patient's sister had colon cancer. Plan to consider surveillance examinations at 5 year intervals with this history.
[2023-03-18 09:17] VITALS: BP 122/73; PULSE 64; RESP 19; O2SAT 100
[2023-03-18 09:27] VITALS: BP 148/85; PULSE 61; RESP 20; O2SAT 100
[2023-03-18 09:37] VITALS: BP 143/80; PULSE 64; RESP 18; O2SAT 100
== END 2023-03-18 09:40 | disposition home or self-care (01) ==
PROVIDERS: PCP Family Medicine; Visit Provider Internal Medicine Gastroenterology
PROC: 0DJD8ZZ Inspection of Lower Intestinal Tract, Via Natural or Artificial Opening Endoscopic (ICD-10-PCS; CPT 45378; principal; 2023-03-18 09:00)
DX: Z12.11 Encounter for screening for malignant neoplasm of colon (principal); K64.8 Other hemorrhoids; I10 Essential (primary) hypertension; E78.2 Mixed hyperlipidemia; Z80.0 Family history of malignant neoplasm of digestive organs; Z85.46 Personal history of malignant neoplasm of prostate
CPT/HCPCS: G0105; J2704; J7120

== ENCOUNTER 2023-11-01 11:05 | Outpatient (CLI) | payer MEDICARE, OTHER, SELFPAY | END 2023-11-01 11:06 | disposition home or self-care (01) | LOC: CHSLAB 11:09 | PROVIDERS: PCP Family Medicine; Visit Provider Specialist | DX: D22.5 Melanocytic nevi of trunk (principal) | CPT/HCPCS: 88305 ==

== ENCOUNTER 2024-02-21 08:07 | Outpatient (CLI) | payer MEDICARE, OTHER, SELFPAY ==
[2024-02-21 12:27] LABS: Basophils Percent Auto 0.5 % (0.2-1.2); Eosinophils Absolute Auto 0.1 K/mm3 (0-0.3); Eosinophils Percent Auto 1.1 % (0-4.4); Hematocrit 46.4 % (42.0-52.0); Hemoglobin 15.5 g/dL (14.0-18.0); Immature Granulocyte Absolute 0.04 K/mm3 (0.00-0.031); Immature Granulocyte Percent A 0.5 % (0-0.5); Lymphocytes Absolute Auto 1.86 K/mm3 (0.9-3.2); Lymphocytes Percent Auto 24.5 % (18.3-44.2); Mean Corpuscular HGB Conc 33.4 g/dl (32-36); Mean Corpuscular Hemoglobin 31.7 pg (26-34); Mean Corpuscular Volume 94.9 fl (80-100); Monocytes Absolute Auto 0.8 K/mm3 (0.1-0.6); Neutrophils Absolute Auto 4.8 K/mm3 (1.3-6.7); Neutrophils Percent Auto 63.4 % (45.5-73.1); Platelet Count Result 247 k/mm3 (150-375); Red Blood Count 4.89 M/mm3 (4.6-6.20); Red Cell Distribution Width 11.9 % (11.5-14.5); White Blood Count 7.6 K/mm3 (4.5-10.0)
[2024-02-21 12:38] LABS: Alanine Aminotransferase 31 U/L (6-50); Albumin Level 4.7 g/dL (3.5-5.1); Alkaline Phosphatase 86 U/L (38-126); Anion Gap 7 mmol/L (4-12); Aspartate Amino Transferase 48 U/L (17-59); Blood Urea Nitrogen 18 mg/dL (9-20); Calcium 9.7 mg/dL (8.4-10.2); Carbon Dioxide 29 mmol/L (22-30); Chloride 102 mmol/L (98-107); Cholesterol 211 mg/dL (0-200); Estimated Glomerular Filt Rate > 60; Glucose 100 mg/dL (65-110); HDL Direct 52 mg/dL; Potassium 3.9 mmol/L (3.4-5.0); Sodium 138 mmol/L (137-145); Triglycerides 170 mg/dL (<150)
[2024-02-21 12:49] LABS: LDL Cholesterol Direct 114 mg/dL
[2024-02-21 14:28] LABS: Hemoglobin A1C 5.3 % (<5.7)
== END 2024-02-21 08:08 | disposition home or self-care (01) ==
PROVIDERS: PCP Family Medicine; Visit Provider Family Medicine
DX: R63.5 Abnormal weight gain (principal); E78.5 Hyperlipidemia, unspecified; E88.818 Other insulin resistance; R73.9 Hyperglycemia, unspecified
CPT/HCPCS: 36415; 80053; 80061; 83036; 84443; 85025

== ENCOUNTER 2024-05-05 17:33 | Emergency (ER) | payer MEDICARE, OTHER, SELFPAY ==
[2024-05-05] VITALS (13 sets, daily range): BP systolic 148–187; BP diastolic 72–89; PULSE 55–82; RESP 14–20; TEMP 36.3; O2SAT 98–100
--- NOTE | ~2024-05-05 | CT_ITS ---
EXAMINATION: CT brain wo con DATE: 05/05/2024 18:11 INDICATION: Dizziness, weakness, nausea and vomiting for one day TECHNIQUE: Computed tomography (CT) of the head was performed without intravenous contrast. The mA wa s adjusted according to patient size. Iterative reconstruction technique was employed. Exam dose: 68 1.00 mGy-cm total exam DLP. COMPARISON: None FINDINGS: No intracranial mass lesion or hemorrhage or cerebrovascular accident, midline shift or mas s effect is noted. Normal ventricular size. No subdural or epidural hematoma. The orbital contents are unremarkable. The mastoid air cells and included paranasal sinuses are normally developed and aerated. No fracture or bone destruction of the cranial vault. IMPRESSION: No significant intracranial abnormality Reviewed, dictated and finalized at Location A. Reviewed, dictated and finalized at location A.
--- NOTE | 2024-05-05 17:36 | ECG_ITS ---
Test Date: 2024-05-05 17:46:39 Measurements Intervals [place] Rate: 66 P: 58 AR: 176 QRS: 56 QRSD: 92 T: 48 QT: 433 QTc: 455 Interpretive Statements SINUS RHYTHM BASELINE ARTIFACT- I, II, III, AVR, AVL NORMAL ECG No previous ECG available for comparison Electronically Signed On 05-05-2024 19:02:24 CDT by Alistair Mcclelland D.O.
--- NOTE | 2024-05-05 17:42 | ED.DIZZY ---
HPI - Dizziness General Chief Complaint: Weakness Stated Complaint: dizziness; weakness Time Seen by Provider: 05/05/24 17:36 Source: patient Mode of arrival: ambulatory Limitations: no limitations History of Present Illness HPI Narrative: 68-year-old male with a history of anxiety, dyslipidemia, hypertension, prostate cancer status post prostatectomy presents to the ED with -- dizziness which started 2 hours ago. He feels vertigo which came on suddenly. No focal neuro deficit. No chest pain or shortness of breath. The patient becomes nauseous around the time he feels the vertigo. No previous episodes of vertigo. His dizziness seems to have improved from the time it started. No ear symptoms. -- he noted high blood pressure of 170/92 at home. MD elicited complaint: vertigo Onset (ago): hour(s) ( 2 hours ago) Timing: sudden onset Severity: moderate Description: room spinning History of similar symptoms: No Exacerbating factors: nothing Relieving factors: nothing Associated symptoms: nausea Related Data Home Medications Medication Instructions Recorded Confirmed brinzolamide 1 %-brimonidine 0.2 % 1 drp EACH EYE BID 11/25/21 04/20/24 eye drops,suspension (Simbrinza) fluoxetine 20 mg capsule mg PO 04/20/24 04/20/24 Allergies Allergy/AdvReac Type Severity Reaction Status Date / Time lactose Allergy Diarrhea Verified 04/20/24 11:05 Review of Systems Review of Systems: All systems reviewed & are unremarkable except as noted in HPI and below Constitutional: Constitutional: Reports as per HPI Eyes: Eyes: Reports as per HPI and Reports no additional eye complaints ENT: Reports system reviewed and no additional complaints, except as documented and Reports as per HPI Cardiovascular: Cardiovascular: Reports as per HPI and Reports no additional cardiovascular complaints Respiratory: Respiratory: Reports as per HPI and Reports no additional respiratory complaints Gastrointestinal: Gastrointestinal: Reports as per HPI and Reports no additional gastrointestinal complaints Genitourinary: Genitourinary: Reports no additional male genitourinary complaints and Reports as per HPI Musculoskeletal: Musculoskeletal: Reports no additional musculoskeletal complaints and Reports as per HPI Integumentary/Breasts: Skin/Breast: Reports system reviewed and no additional complaints, except as docu Comments: Right paulino erythema from a wound which she got 1 week ago Neurologic: Reports system reviewed and no additional complaints, except as documented and Reports as per HPI Psychiatric: Psychiatric: Reports no additional psychiatric complaints, Reports as per HPI and Reports anxiety Endocrine: Endocrine: Reports no additional endocrine complaints and Reports as per HPI Hematologic/Lymphatic: Hematologic/Lymphatic: Reports no additional hematologic/lymphatic complaints and Reports as per HPI Allergic/Immunologic: Allergic/Immunologic: Reports no additional allergic/immunologic complaints and Reports as per HPI [facility] Past Medical History Medical History Arthritis Essential (primary) hypertension Family history of prostate cancer in father Left shoulder pain Mixed hyperlipidemia Prostate cancer Surgical History Surgical History H/O prostatectomy History of surgical removal of skin lesion Family History Family History Sibling Carcinoma of colon Family history of malignant neoplasm of gastrointestinal tract Family history of malignant neoplasm of breast Mother Hypertension Patient's mother is Acute myocardial infarction Depression Heart disease Father Hypertension Family history of elevated blood lipids Malignant neoplasm of prostate Social History Social History Social
[2024-05-05 18:01] LABS: Basophils Absolute Auto 0.05 K/mm3 (0.00-0.10); Basophils Percent Auto 0.6 % (0.0-1.0); Eosinophils Absolute Auto 0.25 K/mm3 (0.02-0.50); Eosinophils Percent Auto 2.8 % (1.0-6.0); Hematocrit 44.9 % (37.0-46.0); Hemoglobin 15.2 g/dL (12.4-15.3); Immature Granulocyte Absolute 0.04 K/mm3 (0.00-0.00); Immature Granulocyte Percent A 0.4 % (0.0-0.0); Lymphocytes Absolute Auto 3.03 K/mm3 (1.10-4.50); Lymphocytes Percent Auto 33.8 % (18.0-42.0); Mean Corpuscular HGB Conc 33.9 g/dL (32-36); Mean Corpuscular Hemoglobin 31.1 pg (27.0-31.0); Mean Corpuscular Volume 91.8 fL (78.0-102.0); Mean Platelet Volume 9.6 fl (8.7-11.0); Monocytes Absolute Auto 0.89 K/mm3 (0.10-0.90); Monocytes Percent Auto 9.9 % (2.0-11.0); Neutrophils Percent Auto 52.5 % (50.0-70.0); Platelet Count Result 245 K/mm3 (150-420); Red Blood Count 4.89 M/mm3 (4.70-6.10); Red Cell Distribution Width 11.4 % (11.6-14.4)
[2024-05-05 18:18] LABS: Glucose Point of Care 128 mg/dl (65-105)
[2024-05-05 18:58] LABS: Alanine Aminotransferase 25 U/L (6-50); Albumin Level 4.8 g/dL (3.5-5.1); Alkaline Phosphatase 91 U/L (38-126); Anion Gap 13 mmol/L (4-12); Aspartate Amino Transferase 47 U/L (17-59); Bilirubin,Total 0.7 mg/dL (0.2-1.3); Blood Urea Nitrogen 18 mg/dL (9-20); Calcium 9.8 mg/dL (8.4-10.2); Carbon Dioxide 29 mmol/L (22-30); Chloride 95 mmol/L (98-107); Estimated CRCL calculation 56 ml/min; Estimated Glomerular Filt Rate > 60; Glucose 129 mg/dL (65-110); Osmolality Calculated 287 mOsm/kg (285-295); Potassium 3.5 mmol/L (3.4-5.0); Sodium 137 mmol/L (137-145)
--- NOTE | 2024-05-05 19:00 | PC.NURSE ---
assumed care. report received from Nickolas SAPP. Patient is aware that a urine sample is needed. Urinal at the bedside.
[2024-05-05 19:09] LABS: Troponin I < 0.012 ng/mL (0.000-0.034)
--- NOTE | 2024-05-05 19:11 | PC.NURSE ---
patient currently sitting on the side of the bed trying to give urine sample. family stepped out of the room
--- NOTE | 2024-05-05 19:16 | PC.NURSE ---
urine taken down to the lab.
--- NOTE | 2024-05-05 19:22 | PC.NURSE ---
Dr Almonte at the bedside
[2024-05-05 19:23] LABS: Appearance Urine Clear (Clear); Color Urine Yellow (Yellow)
--- NOTE | 2024-05-05 19:23 | PC.NURSE ---
patient reported that when he sat up everything in the room started to spin. once he laid back on the stretcher the spinning stopped
[2024-05-05 19:24] LABS: Bilirubin Urine Negative (Negative); Blood Urine Negative (Negative); Glucose Urine UA Negative (Negative); Ketones Urine Negative (Negative); Nitrate Urine Negative (Negative); Protein Urine Negative (Negative)
[2024-05-05 19:25] LABS: Add Urine Microscopic? NO; Leukocyte Esterase Ur Negative LEU/UL (Negative); Urobilinogen Urine 0.2 mg/dL (0.2-1.0)
[2024-05-05] MEDS: PROCHLORPERAZINE EDISYLATE 10 MG/2 ML VIAL IV PUSH (19:36)
--- NOTE | 2024-05-05 19:49 | PC.NURSE ---
encouraged patient to move positions slowly. to ensure balance before getting up and walking. daughter is at the bedside. patient verbalized understanding
== END 2024-05-05 19:51 | disposition home or self-care (01) ==
PROVIDERS: Emergency Provider Internal Medicine Critical Care Medicine; PCP Family Medicine
DX: H81.10 Benign paroxysmal vertigo, unspecified ear (principal); I10 Essential (primary) hypertension; Z85.46 Personal history of malignant neoplasm of prostate; E78.2 Mixed hyperlipidemia
CPT/HCPCS: 36415; 70450; 80053; 81003; 82948; 84484; 85025; 93005; 96374; 99284; J0780